=== PATIENT | male | born 1980 ===

== ENCOUNTER 2020-08-29 15:13 | Inpatient (IN) ==
[2020-08-29] MEDS ORDERED: NITROGLYCERIN SL 0.4 MG TABLET SL STA (15:31)
[2020-08-29] MEDS ORDERED: ASPIRIN 325 MG TABLET PO STA (15:31)
[2020-08-29] MEDS ORDERED: MORPHINE 4 MG/1 ML VIAL IV ONE (15:31)
[2020-08-29] MEDS ORDERED: LIDOCAINE 1%/EPI INJ 20 ML VIAL ONE (15:32)
[2020-08-29] MEDS ORDERED: HEPARIN/NACL 0.9% 2 UNITS/ML 1,000 ML IV ONE (15:32)
[2020-08-29] MEDS ORDERED: METOPROLOL TARTRATE 5 MG/5 ML VIAL IV STA (15:32)
[2020-08-29] MEDS ORDERED: HEPARIN 5,000 UNIT/1 ML VIAL IV STA (15:33)
[2020-08-29] MEDS ORDERED: MIDAZOLAM 2 MG/2 ML VIAL ONE (15:37)
[2020-08-29] MEDS ORDERED: fentaNYL 100 MCG/2 ML VIAL ONE (15:37)
[2020-08-29 15:43] LABS: Basophils % 0.4 % (0.0-0.8); Eosinophils # 0.1 10*3/uL (0.0-0.87); Eosinophils % 0.6 % (0.00-10.9); Hematocrit 44.9 VOL% (42.0-52.0); Hemoglobin 15.9 GM/DL (14.0-18.0); Immature Granulocytes % 0.5 %; Immature Granulocytes Absolute 0.05 #; Lymphocytes # 2.1 10*3/uL (1.4-4.0); Lymphocytes % 22.6 % (21.2-54.2); Mean Corpuscular HGB Conc 35.4 GM/DL (32-36); Mean Corpuscular Volume 86.2 FL (87-102); Mean Platelet Volume 10.4 FL (9.6-12.0); Neutrophils % 68.9 % (38.7-73.9); Platelet Count 233 T/CUMM (130-400); Red Blood Count 5.21 MC/CUMM (3.8-5.5); Red Cell Distribution Width 12.3 % (9.3-17.3); White Blood Count 9.3 T/CUMM (4-12)
[2020-08-29 15:56] LABS: PT Patient Result 10.8 SECS (9.8-11.9); Partial Thromboplastin Time 31.9 SECS (23.9-33.8)
[2020-08-29] MEDS ORDERED: HEPARIN 5,000 UNIT/1 ML VIAL ONE (16:07)
[2020-08-29] MEDS ORDERED: TICAGRELOR 90 MG TABLET ONE ×2 (16:08→16:10)
[2020-08-29] MEDS ORDERED: TIROFIBAN 5,000 MCG/100 ML PREMIX IV SCH (16:09)
[2020-08-29 16:23] LABS: Albumin 3.4 G/DL (3.4-5.0); CKMB % 4.4 %; Calcium 8.5 MG/DL (8.5-10.1); Osmolality,Calculated 273.5 MOS/KG (273-304); Potassium 3.5 MMOL/L (3.5-5.1); Total Protein 8.5 G/DL (6.4-8.3)
[2020-08-29] MEDS ORDERED: MAGNESIUM SULF RIDER 2 GM in PREMIX 1 EACH IV PRN (16:23)
[2020-08-29] MEDS ORDERED: diphenhydrAMINE CAP 25 MG CAPSULE PO PRN (16:23)
[2020-08-29] MEDS ORDERED: BISACODYL 5 MG TABLET PO PRN (16:23)
[2020-08-29] MEDS ORDERED: ALUMINUM/MAGNES/SIMETH MAX STR 30 ML UDCUP PO PRN (16:23)
[2020-08-29] MEDS ORDERED: MAGNESIUM SULF RIDER 4 GM in PREMIX 1 EACH IV PRN (16:23)
[2020-08-29] MEDS ORDERED: hydrALAZINE 20 MG/1 ML VIAL IV PRN (16:23)
[2020-08-29] MEDS ORDERED: CALCIUM CARBONATE CHEW 500 MG TABLET PO PRN (16:23)
[2020-08-29] MEDS ORDERED: ZALEPLON 5 MG CAPSULE PO PRN (16:23)
[2020-08-29] MEDS ORDERED: guaiFENesin/DM ER 600-30 MG TABLET PO PRN (16:23)
[2020-08-29] MEDS ORDERED: ONDANSETRON 4 MG/2 ML VIAL IV PRN (16:23)
[2020-08-29] MEDS ORDERED: ACETAMINOPHEN 325 MG TABLET PO PRN (16:23)
[2020-08-29] MEDS ORDERED: LACTULOSE 20 GM/30 ML UDCUP PO PRN (16:23)
[2020-08-29] MEDS ORDERED: SIMETHICONE CHEW 125 MG TABLET PO PRN (16:23)
[2020-08-29] MEDS ORDERED: MORPHINE 4 MG/1 ML VIAL IV PRN (16:23)
[2020-08-29] MEDS ORDERED: DEXTROSE 50% 25 GM/50 ML VIAL IV PRN (16:27)
[2020-08-29] MEDS ORDERED: GLUCAGON 1 MG VIAL IM PRN (16:27)
[2020-08-29 16:29] LABS: Troponin I 64.4 NG/ML (0.00-0.045)
[2020-08-29] MEDS ORDERED: SODIUM CHLORIDE 0.9% 1,000 ML IV SCH (17:00)
[2020-08-29] MEDS: INSULIN LISPRO 100 UNIT/ML SUBCUT SCH ×2 (17:58→21:29)
[2020-08-29] MEDS: TICAGRELOR 90 MG TABLET PO SCH (21:28)
[2020-08-29] MEDS: ATORVASTATIN 40 MG TABLET PO SCH (21:28)
[2020-08-29] MEDS: AMITRIPTYLINE 25 MG TABLET PO SCH (21:28)
[2020-08-30 03:43] LABS: Basophils % 0.4 % (0.0-0.8); Eosinophils # 0.1 10*3/uL (0.0-0.87); Eosinophils % 0.7 % (0.00-10.9); Hematocrit 42.9 VOL% (42.0-52.0); Hemoglobin 14.8 GM/DL (14.0-18.0); Immature Granulocytes % 0.6 %; Immature Granulocytes Absolute 0.05 #; Lymphocytes % 24.2 % (21.2-54.2); Mean Corpuscular HGB Conc 34.5 GM/DL (32-36); Mean Corpuscular Volume 87.9 FL (87-102); Mean Platelet Volume 10.7 FL (9.6-12.0); Monocytes % 7.5 % (1.7-12.7); Neutrophils % 66.6 % (38.7-73.9); Platelet Count 215 T/CUMM (130-400); Red Blood Count 4.88 MC/CUMM (3.8-5.5); Red Cell Distribution Width 12.6 % (9.3-17.3); White Blood Count 8.3 T/CUMM (4-12)
[2020-08-30 04:02] LABS: Risk Ratio 4.5; VLDL CHOLESTEROL 39.4 MG/DL
[2020-08-30 07:11] LABS: CKMB % 3.8 %; Calcium 8.9 MG/DL (8.5-10.1); Osmolality,Calculated 270.4 MOS/KG (273-304); Potassium 3.3 MMOL/L (3.5-5.1)
[2020-08-30 07:14] LABS: Troponin I 55.4 NG/ML (0.00-0.045)
[2020-08-30 07:59] LABS: Barbiturates Screen,Urine Negative (Negative); Benzodiazepines Screen,Urine Positive (Negative); Cannabinoid Screen,Urine Negative (Negative); Opiate Screen,Urine Positive (Negative); Phencyclidine Screen,Urine Negative (Negative)
[2020-08-30] MEDS ORDERED: carvediloL 3.125 MG TABLET PO SCH (09:00)
[2020-08-30] MEDS: ASPIRIN EC 81 MG TABLET PO SCH (09:22)
[2020-08-30] MEDS: POTASSIUM CHLORIDE 20 MEQ TABLET PO PRN ×3 (09:23→14:44)
[2020-08-30] MEDS: METOPROLOL TARTRATE 25 MG TABLET PO SCH ×2 (09:24→21:11)
[2020-08-30] MEDS: PANTOPRAZOLE 40 MG TABLET PO SCH (09:24)
[2020-08-30] MEDS: TICAGRELOR 90 MG TABLET PO SCH ×2 (09:24→21:11)
[2020-08-30] MEDS: ENOXAPARIN 40 MG/0.4 ML SYRINGE SUBCUT SCH (09:25)
[2020-08-30] MEDS: INSULIN LISPRO 100 UNIT/ML SUBCUT SCH ×4 (09:53→21:57)
[2020-08-30] MEDS: AMITRIPTYLINE 25 MG TABLET PO SCH (21:11)
[2020-08-30] MEDS: ATORVASTATIN 40 MG TABLET PO SCH (21:11)
[2020-08-31 05:47] LABS: Basophils % 0.3 % (0.0-0.8); Eosinophils # 0.1 10*3/uL (0.0-0.87); Eosinophils % 1.2 % (0.00-10.9); Hematocrit 43.5 VOL% (42.0-52.0); Hemoglobin 14.8 GM/DL (14.0-18.0); Immature Granulocytes % 0.8 %; Immature Granulocytes Absolute 0.07 #; Lymphocytes % 22.1 % (21.2-54.2); Mean Corpuscular Volume 89.3 FL (87-102); Mean Platelet Volume 10.8 FL (9.6-12.0); Monocytes % 8.1 % (1.7-12.7); Neutrophils % 67.5 % (38.7-73.9); Platelet Count 210 T/CUMM (130-400); Red Blood Count 4.87 MC/CUMM (3.8-5.5); Red Cell Distribution Width 12.5 % (9.3-17.3); White Blood Count 9.1 T/CUMM (4-12)
[2020-08-31 06:13] LABS: Blood Urea Nitrogen 9 MG/DL (7-18); Calcium 8.5 MG/DL (8.5-10.1); Carbon Dioxide 28 MMOL/L (21-32); Estimated Glom Filtration Rate 103 ML/MIN; Glucose 228 MG/DL (74-106); Potassium 3.9 MMOL/L (3.5-5.1); Sodium 136 MMOL/L (136-145)
[2020-08-31 08:35] VITALS: BP 127/83
[2020-08-31] MEDS ORDERED: METOPROLOL SUCCINATE XL 25 MG TABLET PO SCH (09:00)
[2020-08-31] MEDS: ENOXAPARIN 40 MG/0.4 ML SYRINGE SUBCUT SCH (09:02)
[2020-08-31] MEDS: ASPIRIN EC 81 MG TABLET PO SCH (09:02)
[2020-08-31] MEDS: PANTOPRAZOLE 40 MG TABLET PO SCH (09:02)
[2020-08-31] MEDS: TICAGRELOR 90 MG TABLET PO SCH (09:02)
[2020-08-31] MEDS: INSULIN LISPRO 100 UNIT/ML SUBCUT SCH (09:04)
== END 2020-08-31 10:38 | disposition home or self-care (01) | DRG 247 ==
LOC: N.ED 15:13 → N.TELES 15:39 → N.EDINP 16:18 → N.TELES 16:54
PROVIDERS: ADMIT Internal Medicine Interventional Cardiology; ATTEND Internal Medicine Interventional Cardiology
PROC: CLCCHCL (ICD-10-PCS; 2020-08-29 16:00)